=== PATIENT | male | born 1990 | race Two or more races ===

== ENCOUNTER 2021-01-04 17:11 | Emergency (ER) | payer MEDICAID ==
[~2021-01-04] VITALS: Ht 185.4 cm; Wt 117.0 kg
[2021-01-04 18:51] LABS: BASOPHILS % 0.4 % (0.0-2.0); EOSINOPHILS % 1.3 % (0.0-5.0); HEMATOCRIT. 39.6 % (42.0-52.0); HEMOGLOBIN. 13.8 g/dL (14.0-18.0); MEAN CORPUSCULAR HEMOGLOBIN 31.5 pg (28.0-32.0); MEAN CORPUSCULAR VOLUME 90.6 fL (80.0-94.0); MEAN PLATELET VOLUME 8.6 fl (7.4-10.4); MONOCYTES % 6.1 % (2.0-8.0); NEUTROPHILS % 81.2 % (40.0-76.0); PLATELET 226 x1000/uL (130-400); RED BLOOD CELL COUNT 4.37 mill/uL (4.7-6.1); RED CELL DISTRIBUTION WIDTH 13.5 % (11.6-14.6)
[2021-01-04 18:55] LABS: CHLORIDE 103 mEq/L (98-107)
[2021-01-04 19:47] LABS: CLARITY URINE CLEAR (CLEAR); COLOR URINE YELLOW (YELLOW); KETONES URINE NEGATIVE (NEGATIVE); LEUKOCYTE ESTERASE URINE NEGATIVE (NEGATIVE); NITRITE URINE NEGATIVE (NEGATIVE); OCCULT BLOOD URINE NEGATIVE (NEGATIVE); PH URINE 6.5 (4.5-8.0); PROTEIN URINE NEGATIVE (NEGATIVE); SPECIFIC GRAVITY URINE 1.008 (1.005-1.030); UROBILINOGEN URINE 0.2 E.U./dL (0.2-1.0)
[2021-01-04 20:26] LABS: OPIATES URINE SCREEN NEGATIVE (NEGATIVE)
[2021-01-04 20:27] LABS: *AMPHETAMINES SCREEN URINE PRESUMTIVE POSITIVE (NEGATIVE); *BARBITURATES SCREEN URINE NEGATIVE (NEGATIVE); *BENZODIAZEPINES SCREEN URINE NEGATIVE (NEGATIVE); *COCAINE SCREEN URINE NEGATIVE (NEGATIVE); CANNABINOID URINE SCREEN PRESUMTIVE POSITIVE (NEGATIVE); PHENCYCLIDINE URINE SCREEN PRESUMTIVE POSITIVE (NEGATIVE)
[2021-01-04 20:28] LABS: METHADONE URINE SCREEN NEGATIVE (NEGATIVE)
[2021-01-04] MEDS ORDERED: SODIUM CHLORIDE 0.9% 1,000 ML IV ONE (22:30)
[2021-01-04 23:05] LABS: CHLORIDE 107 mEq/L (98-107)
[2021-01-04 23:13] LABS: CREATINE KINASE 169 IU/L (39-308)
[2021-01-05 07:43] VITALS: BP 151/100
== END 2021-01-05 11:52 | disposition home or self-care (01) ==
LOC: ER 17:11
DX: T43.591A Poisoning by other antipsychotics and neuroleptics, accidental (unintentional), initial encounter (principal); F15.10 Other stimulant abuse, uncomplicated; F16.10 Hallucinogen abuse, uncomplicated; F12.10 Cannabis abuse, uncomplicated; E78.00 Pure hypercholesterolemia, unspecified; Y92.89 Other specified places as the place of occurrence of the external cause
CPT/HCPCS: 36415; 80053; 80305; 80307; 80329; 81003; 82550; 85025; 93005; 96360; 99285; J7030

== ENCOUNTER 2021-09-06 18:04 | Emergency (ER) | payer MEDICAID ==
[~2021-09-06] VITALS: Ht 177.8 cm; Wt 91.0 kg
[2021-09-06 18:11] VITALS: BP 166/101
== END 2021-09-06 21:29 | disposition left against medical advice (07) ==
LOC: ER 18:04
DX: R07.89 Other chest pain (principal); R06.02 Shortness of breath; R05.9 Cough, unspecified; F41.9 Anxiety disorder, unspecified; F32.9 Major depressive disorder, single episode, unspecified; F15.10 Other stimulant abuse, uncomplicated
CPT/HCPCS: 93005; 99283